=== PATIENT | female | born 1995 | race Caucasian/White ===

== ENCOUNTER → 2017-12-04 | Outpatient (CLI) | payer OTHER ==
[~2017-12-04] MED LIST: AMOX-559 PO; AZIT500T47 PO; BUSP7.5T7 PO; LOR5/325 PO; NORG1TAB75 PO; ORAL BIRTH CONTROL
== END ==
LOC: LAB 13:48
PROVIDERS: ATTEND Nurse Practitioner Primary Care
DX: Z11.3 Encounter for screening for infections with a predominantly sexual mode of transmission (principal); J02.9 Acute pharyngitis, unspecified
CPT/HCPCS: 36415; 86703; 87081; 87491; 87591

== ENCOUNTER → 2018-02-04 | Outpatient (CLI) | payer OTHER | LOC: LAB 16:06 | PROVIDERS: ATTEND Nurse Practitioner Primary Care | DX: Z11.3 Encounter for screening for infections with a predominantly sexual mode of transmission (principal); Z71.89 Other specified counseling | CPT/HCPCS: 36415; 86703; 87340 ==

== ENCOUNTER → 2018-07-31 | Outpatient (CLI) | payer OTHER ==
[~2018-07-31] MED LIST changes: +HEPA20VI IM; +HEPA40VI2 IM
[2018-07-31 14:02] LABS: PLATELET COUNT, AUTOMATED 192 K/uL (150-450)
== END ==
LOC: LAB 13:46
PROVIDERS: ATTEND Nurse Practitioner Primary Care
DX: R19.7 Diarrhea, unspecified (principal)
CPT/HCPCS: 36415; 82040; 82247; 82310; 82374; 82435; 82565; 82947; 83516; 84075; 84132; 84155; 84295; 84450; 84460; 84520; 85025; 85651; 86140

== ENCOUNTER 2018-12-20 22:55 | Emergency (ER) | payer OTHER ==
[~2018-12-20 22:55] MED LIST changes: +DICY20TA70 PO; +OMEP-137 PO
--- NOTE | 2018-12-20 23:11 | ER Report ---
History and Physical Time Seen By : 23:11 Hx. of Stated Complaint: lower abdominal cramping. has been going on a long time. been taking miralax HPI/ROS CHIEF COMPLAINT: Abdominal cramping HISTORY OF PRESENT ILLNESS: This is a 23 year old female. She has had abdominal cramping the last few days. Has had some chronic abdominal problems, currently awaiting to get into gastroenterology. Had been on dicyclomine at times. Had tried Miralax yesterday, but then had some diarrhea today. Worsening pain across the lower abdomen. No problems with urination. No vomiting. REVIEW OF SYSTEMS: Constitutional: No fever or chills. Cardiovascular: No chest pain. Respiratory: No shortness of breath. Genitourinary: No dysuria. No frequency Musculoskeletal: No musculoskeletal pain. Skin: No rashes. Neurological: No numbness. No weakness. Allergies: Coded Allergies: codeine (Verified Allergy, Severe, "UNRESPONSIVE, 12/20/18) Home Meds Active Scripts Ketorolac Tromethamine (KETOROLAC TROMETHAMINE) 10 Mg Tab, 10 MG PO Q6H PRN for PAIN, #12 TAB 0 Refills Prov:MIGUE RAMÍREZ MD 12/21/18 Dicyclomine Hcl (DICYCLOMINE HCL) 20 Mg Tablet, 1 TAB PO QID, #120 TAB 0 Refills Prov:JACOB CHAPA DNP, FNP-PIERCE 10/22/18 Norgestimate-Ethinyl Estradiol (TRI-SPRINTEC) 1 Each Tablet, 1 EACH PO QDAY, #3 PACK 4 Refills Prov:JACOB CHAPA DNP, FNP-PIERCE 04/02/18 Discontinued Scripts Omeprazole (OMEPRAZOLE) 20 Mg Tablet.dr, 1 TAB PO BID for 30 Days, #60 TAB 0 Refills Prov:JACOB CHAPA DNP, FNP-PIERCE 10/22/18 Buspirone Hcl (BUSPIRONE HCL) 7.5 Mg Tablet, 1 TAB PO BID, #60 TAB 90 Refills Take 1 tab twice daily. In 2-3 days, may increase to 1.5 tabs twice daily, if needed. Prov:JACOB CHAPA DNP, FNP-BC 05/18/17 Reviewed Nurses Notes: Yes Hx Smoking: No Smoking Status: Never Smoker Constitutional Vital Sign - Last 24 Hours 12/20/18 12/20/18 12/20/18 12/20/18 23:04 23:07 23:10 23:25 Temp 98.0 Pulse 65 ??? 68 Resp 12 B/P (MAP) 143/100 143/100 (114) Pulse Ox 95 95 O2 Delivery Room Air 12/20/18 12/20/18 12/20/18 12/21/18 23:30 23:40 23:55 00:00 Pulse 54 55 B/P (MAP) 125/78 (94) 125/79 (94) Pulse Ox 94 96 12/21/18 12/21/18 12/21/18 12/21/18 00:10 00:13 00:25 00:30 Pulse ??? 59 B/P (MAP) 130/72 (91) 121/72 (88) Pulse Ox 95 12/21/18 12/21/18 12/21/18 12/21/18 00:35 00:50 01:00 01:05 Pulse 66 58 59 B/P (MAP) 122/72 (89) Pulse Ox 100 97 96 12/21/18 12/21/18 12/21/18 12/21/18 01:20 01:30 01:35 01:50 Pulse ??? 61 55 B/P (MAP) 110/88 (95) Pulse Ox 94 96 88 Physical Exam General Appearance: The patient is alert. No acute distress. Eyes: Pupils are equal, round. No pallor, injection or icterus. ENT: Mucous membranes are moist. Respiratory: Lungs are clear to auscultation. Cardiovascular: Regular rate and rhythm. No murmurs, gallops or rubs. Gastrointestinal: Abdomen is soft, discomfort throughout the lower abdomen. Guarding, but no rebound. Nondistended. No masses or organomegaly. No costovertebral angle tenderness with percussion. Neurological: Alert and oriented x3. No focal neurologic deficits Skin: Warm and dry. No rashes. Musculoskeletal: No tenderness of the spinous processes, mild discomfort with palpation/percusion of left lumbar area. DIFFERENTIAL DIAGNOSIS: After history and physical exam, differential diagnosis was considered for abdominal pain including but not limited to appendicitis, cholecystitis, gastritis and urinary tract infection. Medical Decision Making Data Points Result Diagram: 12/20/18231012/20/182310 Laboratory Hematology Test 12/20/18 23:11 12/21/18 00:58 Red Blood Count 5.02 M/uL (4.17-5.56) Mean Corpuscular Volume 91.0 fL (80.0-96.0) Mean Corpuscular Hemoglobin 30.9 pg (26.0-33.0) Mean Corpuscular Hemoglobin Concent 34.0 g/dL (32.0-36.0) Red Cell Distribution Width 13.1 % (11.5-14.5) Mean Platelet Volume 8.3 fL (7.2-11.1) Neutrophils (%) (Auto) 60.4 % (39.4-72.5) Lymphocytes (%) (Auto) 30.3 % (17.6-49.6) Monocytes (%) (Auto) 7.7 % (4.1-12.4) Eosinophils (%) (Auto) 0.4 % (0.4-6.7) Basophils (%) (Auto) 1.2 % (0.3-1.4) Nucleated RBC Relative Count (auto) 0.1 /100WBC Neutrophils # (Auto) 3.4 K/uL (2.0-7.4) Lymphocytes # (Auto) 1.7 K/uL (1.3-3.6) Monocytes # (Auto) 0.4 K/uL (0.3-1.0) Eosinophils # (Auto) 0.0 K/uL (0.0-0.5) Basophils # (Auto) 0.1 K/uL (0.0-0.1) Nucleated RBC Absolute Count (auto) 0.00 K/uL Sodium Level 138 mmol/L (137-145) Potassium Level 3.6 mmol/L (3.5-5.0) Chloride Level 102 mmol/L (98-107) Carbon Dioxide Level 25 mmol/L (22-31) Blood Urea Nitrogen 12 mg/dl (7-18) Creatinine 0.80 mg/dl (0.52-1.04) Glomerular Filtration Rate Calc > 60.0 Random Glucose 90 mg/dl (75-110) Calcium Level 9.7 mg/dl (8.4-10.2) Total Bilirubin 0.2 mg/dl (0.2-1.3) Aspartate Amino Transf (AST/SGOT) 27 U/L (0-35) Alanine Aminotransferase (ALT/SGPT) 25 U/L (0-56) Alkaline Phosphatase 61 U/L (0-126) Total Protein 8.1 g/dl (6.3-8.2) Albumin 4.8 g/dl (3.5-5.0) Human Chorionic Gonadotropin, Qual Negative (NEGATIVE) Amylase Level 77 U/L (0-110) Lipase 75 U/L (23-300) Chemistry Test 12/20/18 23:11 12/21/18 00:58 White Blood Count 5.7 k/uL (4.5-11.0) Red Blood Count 5.02 M/uL (4.17-5.56) Hemoglobin 15.5 g/dL (12.0-16.0) Hematocrit 45.7 % (34.0-47.0) Mean Corpuscular Volume 91.0 fL (80.0-96.0) Mean Corpuscular Hemoglobin 30.9 pg (26.0-33.0) Mean Corpuscular Hemoglobin Concent 34.0 g/dL (32.0-36.0) Red Cell Distribution Width 13.1 % (11.5-14.5) Platelet Count 199 K/uL (150-450) Mean Platelet Volume 8.3 fL (7.2-11.1) Neutrophils (%) (Auto) 60.4 % (39.4-72.5) Lymphocytes (%) (Auto) 30.3 % (17.6-49.6) Monocytes (%) (Auto) 7.7 % (4.1-12.4) Eosinophils (%) (Auto) 0.4 % (0.4-6.7) Basophils (%) (Auto) 1.2 % (0.3-1.4) Nucleated RBC Relative Count (auto) 0.1 /100WBC Neutrophils # (Auto) 3.4 K/uL (2.0-7.4) Lymphocytes # (Auto) 1.7 K/uL (1.3-3.6) Monocytes # (Auto) 0.4 K/uL (0.3-1.0) Eosinophils # (Auto) 0.0 K/uL (0.0-0.5) Basophils # (Auto) 0.1 K/uL (0.0-0.1) Nucleated RBC Absolute Count (auto) 0.00 K/uL Glomerular Filtration Rate Calc > 60.0 Calcium Level 9.7 mg/dl (8.4-10.2) Total Bilirubin 0.2 mg/dl (0.2-1.3) Aspartate Amino Transf (AST/SGOT) 27 U/L (0-35) Alanine Aminotransferase (ALT/SGPT) 25 U/L (0-56) Alkaline Phosphatase 61 U/L (0-126) Total Protein 8.1 g/dl (6.3-8.2) Albumin 4.8 g/dl (3.5-5.0) Human Chorionic Gonadotropin, Qual Negative (NEGATIVE) Amylase Level 77 U/L (0-110) Lipase 75 U/L (23-300) EKG/Imaging Imaging CT of the abdomen and pelvis with contrast: Indication: Lower abdominal pain. Technique: Helical CT was performed through the abdomen and pelvis following IV contrast enhancement with 75 cc of Isovue-370. Multiplanar reconstructions are reviewed. One of the following dose optimization techniques was utilized in the performance of this exam: Automated exposure control; adjustment of the mA and/or kV according to the patient's size; or use of an iterative reconstruction technique. Specific details can be referenced in the facility's radiology CT exam operational policy. Comparison: None available. Lower lung ozuna: No parenchymal or pleural abnormality is identified. Liver: Normal in size, shape, and density. The venous structures are unremarkable, as visualized. Gallbladder/biliary tree: The gallbladder appears partially contracted, but otherwise unremarkable. The bile ducts are not dilated. Pancreas: Normal in size, shape, and density. Spleen: Normal in size, shape, and density. Adrenal glands: Within normal limits. Kidneys/urinary bladder: The kidneys are normal in size, shape, and density. There are no signs of urinary tract calculus or obstructive uropathy. The bladder appears homogeneous and unremarkable. Intestinal structures: Unremarkable, as visualized. There are no signs of obstruction or focal inflammatory changes. The appendix is not clearly delineated, but there are no signs of inflammation or fluid in the right lower quadrant. Pelvis: The uterus and adnexal structures are unremarkable, as visualized. There is a small amount of free fluid in the cul-de-sac, which is a nonspecific finding. No circumscribed fluid collection is identified. Aorta and vascular structures: Within normal limits. Ascites or fluid collections: Small amount of free fluid in the cul-de-sac. Otherwise unremarkable. Skeletal structures: Intact and unremarkable. Impression: No acute process is clearly identified in the abdomen or pelvis. There is minimal free fluid in the cul-de-sac, which is a nonspecific finding. Report Dictated By: Vicente Steen MD at 12/21/2018 12:39 AM ED Course/Re-evaluation Clinical Indication for ER IV: IV Access ED Course Initial evaluation shows no problems on CT scan or labs. Patient did receive Toradol and a liter fluid and did feel a lot better. Recommended follow-up with gastroenterology, can continue to use MiraLAX as needed but at a lower dose daily. Can also continue to use dicyclomine if desired. Decision to Disposition Date: Dec 21, 2018 Decision to Disposition Time: 01:57 Depart Departure Latest Vital Signs Vital Signs Date Time Temp Pulse Resp B/P (MAP) Pulse Ox O2 Delivery O2 Flow Rate FiO2 12/21/18 01:50 55 88 12/21/18 01:30 110/88 (95) 12/20/18 23:04 98.0 12 Room Air Impression: Primary Impression: Abdominal pain Condition: Improved Disposition: HOME OR SELF-CARE Referrals: JACOB CHAPA DNP, [facility]-BC (PCP) New Scripts Ketorolac Tromethamine (KETOROLAC TROMETHAMINE) 10 Mg Tab 10 MG PO Q6H PRN for PAIN, #12 TAB 0 Refills Prov: MIGUE RAMÍREZ MD 12/21/18 Patient Instructions: Abdominal Pain (ED) Additional Instructions: We did not find any problems on labs or imaging tonight. We recommend follow-up with Gastroenterology for further evaluation. Use Toradol 10mg, one every 6 hours as needed for pain. Problem Qualifiers Primary Impression: Abdominal pain Abdominal location: lower abdomen, unspecified Qualified Codes: R10.30 - Lower abdominal pain, unspecified MIGUE RAMÍREZ MD Dec 20, 2018 23:11
[2018-12-20] MEDS ORDERED: NS(*) 0.9% 1000 ML BAG 1,000 ML IV ONE (23:30)
[2018-12-20] MEDS ORDERED: KETOROLAC 30 MG/ML VIAL IVP ONE (23:30)
[2018-12-20 23:43] LABS: PLATELET COUNT, AUTOMATED 199 K/uL (150-450)
[2018-12-21] MEDS ORDERED: IOPAMIDOL 76% 150 ML INFUS BTL 150 ML ONE (00:05)
--- NOTE | 2018-12-21 00:50 | RADIOLOGY IMAGING REPORT ---
FACILITY: [facility] PATIENT NAME: Love Palmer : 1995 MR: [id number] V: [id number] EXAM DATE: ORDERING PHYSICIAN: MIGUE RAMÍREZ TECHNOLOGIST: Location: [facility] [place] Patient: Love Palmer : 1995 Visit/Account:[id number] Date of Sevice: 12/20/2018 CT of the abdomen and pelvis with contrast: Indication: Lower abdominal pain. Technique: Helical CT was performed through the abdomen and pelvis following IV contrast enhancement with 75 cc of Isovue-370. Multiplanar reconstructions are reviewed. One of the following dose optimization techniques was utilized in the performance of this exam: Autom ated exposure control; adjustment of the mA and/or kV according to the patient's size; or use of an i terative reconstruction technique. Specific details can be referenced in the facility's radiology CT exam operational policy. Comparison: None available. Lower lung ozuna: No parenchymal or pleural abnormality is identified. Liver: Normal in size, shape, and density. The venous structures are unremarkable, as visualized. Gallbladder/biliary tree: The gallbladder appears partially contracted, but otherwise unremarkable. T he bile ducts are not dilated. Pancreas: Normal in size, shape, and density. Spleen: Normal in size, shape, and density. Adrenal glands: Within normal limits. Kidneys/urinary bladder: The kidneys are normal in size, shape, and density. There are no signs of urinary tract calculus or obstructive uropathy. The bladder appears homogeneous and unremarkable. Intestinal structures: Unremarkable, as visualized. There are no signs of obstruction or focal inflam matory changes. The appendix is not clearly delineated, but there are no signs of inflammation or flu id in the right lower quadrant. Pelvis: The uterus and adnexal structures are unremarkable, as visualized. There is a small amount of free fluid in the cul-de-sac, which is a nonspecific finding. No circumscribed fluid collection is i dentified. Aorta and vascular structures: Within normal limits. Ascites or fluid collections: Small amount of free fluid in the cul-de-sac. Otherwise unremarkable. Skeletal structures: Intact and unremarkable. Impression: No acute process is clearly identified in the abdomen or pelvis. There is minimal free fl uid in the cul-de-sac, which is a nonspecific finding. Report Dictated By: Vicente Steen MD at 12/21/2018 12:39 AM Report E-Signed By: Vicente Steen MD at 12/21/2018 12:47 AM WSN:[id number]
[2018-12-21 01:30] VITALS: BP 110/88
[2018-12-21] MEDS ORDERED: KET10 PO (01:58)
[2018-12-21] MEDS ORDERED: KETOROLAC TROM 10 MG TAB TH PO ONE (02:00)
== END 2018-12-21 02:06 | disposition home or self-care (01) ==
LOC: ER 23:14
DX: R10.30 Lower abdominal pain, unspecified (principal)
CPT/HCPCS: 74177; 82150; 83690; 84703; 85025; 96361; 96374; 99284; J1885; J7030; Q9967; 82040; 82247; 82310; 82374; 82435; 82565; 82947; 84075; 84132; 84155; 84295; 84450; 84460; 84520

== ENCOUNTER → 2019-01-01 | Outpatient (CLI) | payer OTHER ==
[~2019-01-01] MED LIST changes: +KET10 PO
== END ==
LOC: LAB 13:39
PROVIDERS: ATTEND Nurse Practitioner Primary Care
DX: Z11.59 Encounter for screening for other viral diseases (principal)
CPT/HCPCS: 36415; 86706